=== PATIENT | female | born 1990 | race Caucasian/White ===

== ENCOUNTER 2016-12-13 11:14 | Emergency (ER) | payer OTHER ==
[~2016-12-13] VITALS: Ht 160 cm; Wt 95.0 kg
[~2016-12-13 11:14] MED LIST: ALBUTEROL SUL0.083 % IN; AMOXICILLIN/CL875 MG PO; AMOXICILLIN500 MG PO; BACTRIM DS1 TAB OR; BACTROBAN2 % EX; BENADRYL25 MG OR; CEPHALEXIN500 MG PO; CIPROFLOXACN500 MG PO; CLEOCIN150 MG PO; CLOBETASOL0.051 EX; CONCEPT OB PO; DENIES CURRENT MEDS; DOXYCYCL HYC100 MG PO; FLEXERIL OR; HYDROCORTISO2.51 EX; IBU-200200 MG OR; KEFLEX500 MG PO; LORTAB 10-325 M1 TAB PO; LORTAB 7.57.5 MG PO; MACRODANTIN100 MG PO; MEDDOSEPAK OR; MEDDOSEPAK PO; METRONIDAZOLE500 MG PO; MOTRIN800 MG PO; MOTRIN800 MG/TAB PO; NAPROSYN375 MG PO; NAPROSYN500 MG OR; NAPROSYN500 MG PO; NO; NO HOME MEDS; NORCO1 TA1 PO; ORTHO TRI-CY OR; PENICILLN VK500 MG PO; PHENERGAN12.5 MG/TA PO; PRE-NATAL PO; PROAIR HFA IN; PYRIDIUM200 MG PO; SPRINTEC 2828 DAY PO; STERAPRED DS10 MG PO; SYMBICORT 80-4.5MCG INH; TRAZODONE50 MG PO; TUBERSOL5 MG/0.1 M ID; TYLENOL500 MG PO; ULTRAM50 M1 PO; ULTRAM50 MG OR; ZITHROMAX250 MG PO; ZOFRAN ODT4 MG SL; ZOFRAN ODT8 MG SL; [UNRECOGNIZED DRUG - OTHER]
[2016-12-13 11:15] VITALS: BP 115/84
[2016-12-13] MEDS ORDERED: AMOX/K CLAV875 M1 PO (12:52)
[2016-12-13] MEDS ORDERED: ULTRAM50 M1 PO (12:52)
[2016-12-13] MEDS ORDERED: ZOFRAN ODT4 MG PO (12:52)
== END 2016-12-13 13:20 | disposition home or self-care (01) | DRG 603 ==
LOC: ED 11:14
DX: L03.116 Cellulitis of left lower limb (principal); M79.605 Pain in left leg; S70.312A Abrasion, left thigh, initial encounter; R22.42 Localized swelling, mass and lump, left lower limb; W19.XXXA Unspecified fall, initial encounter; Y92.009 Unspecified place in unspecified non-institutional (private) residence as the place of occurrence of the external cause

== ENCOUNTER 2016-12-27 10:17 | Emergency (ER) | payer OTHER ==
[~2016-12-27] VITALS: Ht 160 cm; Wt 95.5 kg
[~2016-12-27 10:17] MED LIST changes: +AMOX/K CLAV875 M1 PO; +ZOFRAN ODT4 MG PO
[2016-12-27 11:45] LABS: HEMATOCRIT 46.3 % (37.0-47.0); IMMATURE GRANULOCYTES 0.6 % (0.0-1.0); MEAN CELL VOLUME 88.5 fL CALC (80.0-100.0); MEAN CORPUSCULAR HGB 30.6 pG CALC (26.0-32.0); MEAN CORPUSCULAR HGB CONC 34.6 g/L CALC (32.0-36.0); NEUT# 11.76 thou/uL (2.00-7.15); RED BLOOD COUNT 5.23 mill/uL (4.20-5.60); RED CELL DISTRI WIDTH 12.1 % (11.5-15.5)
[2016-12-27 11:55] LABS: ALBUMIN 4.7 g/dL (3.2-5.0); ALKALINE PHOSPHATASE 85 u/l (38-126); ANION GAP 16 (6-22 (CALC)); BILIRUBIN, TOTAL 0.4 mg/dL (0.0-1.4); BUN 12 mg/dL (7-17); BUN/CREATININE RATIO 16 (12-20 (CALC)); CALCIUM 9.6 mg/dL (8.4-10.2); CARBON DIOXIDE 31 mmol/l (22-30); CHLORIDE 98 mmol/l (95-108); CREATININE 0.8 mg/dL (0.5-1.0); GFR > 60 ML/MIN (>=60 (CALC)); GFR FOR AFR.AMER. > 60 ML/MIN (>=60 (CALC)); GLUCOSE 96 mg/dL (65-105); POTASSIUM 3.2 mmol/l (3.5-5.1); SGOT/AST 23 u/l (14-36); SGPT/ALT 22 u/l (9-52); SODIUM 142 mmol/l (137-146); TOTAL PROTEIN 8.6 g/dL (6.3-8.2)
[2016-12-27 11:58] LABS: URINE BILIRUBIN - DIPSTICK NEGATIVE (NEGATIVE); URINE BLOOD DIPSTICK LARGE (NEGATIVE); URINE COLOR YELLOW; URINE GLUCOSE - DIPSTICK NEGATIVE (NEGATIVE); URINE KETONE NEGATIVE (NEGATIVE); URINE LEUK ESTERASE TRACE (NEGATIVE); URINE NITRITE - DIPSTICK NEGATIVE (Negative); URINE PROTEIN - DIPSTICK NEGATIVE (NEG-TRACE); URINE UROBILINOGEN - DIPSTICK 0.2 E.U./dL (0.2)
[2016-12-27 12:03] LABS: BARBITURATES NEGATIVE (NEGATIVE); COCAINE NEGATIVE (NEGATIVE); METHADONE NEGATIVE (NEGATIVE); OXCYCODONE NEGATIVE (NEGATIVE); TETRAHYDROCANNABIONOL NEGATIVE (NEGATIVE); TRICYLIC ANTIDEPRESSANTS NEGATIVE (NEGATIVE); URINE CLARITY HAZY; URINE EPITHELIAL CELLS FEW EPI/hpf (0-FEW); URINE RBC 25-50 RBC/hpf (0-5); URINE WBC 0-2 WBC/hpf (0-5)
[2016-12-27 12:07] LABS: MYOGLOBIN 23 ng/mL (0 - 62)
[2016-12-27] MEDS ORDERED: K-TAB20 MEQ PO (13:24)
[2016-12-27] MEDS ORDERED: ZOFRAN4 MG/TAB PO (13:24)
[2016-12-27 13:48] VITALS: BP 126/85
== END 2016-12-27 13:49 | disposition home or self-care (01) | DRG 312 ==
LOC: ED 10:17
PROVIDERS: Emergency Medicine
DX: R55 Syncope and collapse (principal); E87.6 Hypokalemia; R00.2 Palpitations

== ENCOUNTER 2017-02-02 08:34 | Emergency (ER) | payer OTHER ==
[~2017-02-02] VITALS: Ht 160 cm; Wt 99.6 kg
[~2017-02-02 08:34] MED LIST changes: +K-TAB20 MEQ PO; +ZOFRAN4 MG/TAB PO
[2017-02-02] MEDS ORDERED: KEFLEX500 MG PO (08:56)
[2017-02-02 09:00] VITALS: BP 126/87
== END 2017-02-02 09:00 | disposition home or self-care (01) | DRG 918 ==
LOC: ED 08:34
DX: T63.301A Toxic effect of unspecified spider venom, accidental (unintentional), initial encounter (principal); L53.0 Toxic erythema; F32.9 Major depressive disorder, single episode, unspecified; F41.9 Anxiety disorder, unspecified; J45.909 Unspecified asthma, uncomplicated

== ENCOUNTER 2017-02-25 21:28 | Emergency (ER) | payer OTHER ==
[~2017-02-25] VITALS: Ht 160 cm; Wt 95.2 kg
[2017-02-25 22:15] LABS: HEMATOCRIT 42.9 % (37.0-47.0); HEMOGLOBIN 15.2 g/dl (12.0-16.0); IMMATURE GRANULOCYTES 0.4 % (0.0-1.0); MEAN CELL VOLUME 89.2 fL CALC (80.0-100.0); MEAN CORPUSCULAR HGB 31.6 pG CALC (26.0-32.0); MEAN CORPUSCULAR HGB CONC 35.4 g/L CALC (32.0-36.0); NEUT# 3.61 thou/uL (2.00-7.15); RED BLOOD COUNT 4.81 mill/uL (4.20-5.60); RED CELL DISTRI WIDTH 12.4 % (11.5-15.5)
[2017-02-25 22:32] LABS: ALBUMIN 4.7 g/dL (3.2-5.0); ALKALINE PHOSPHATASE 82 u/l (38-126); AMYLASE 40 u/l (30-110); ANION GAP 18 (6-22 (CALC)); BILIRUBIN, TOTAL 0.4 mg/dL (0.0-1.4); BUN 9 mg/dL (7-17); BUN/CREATININE RATIO 15 (12-20 (CALC)); CALCIUM 9.3 mg/dL (8.4-10.2); CARBON DIOXIDE 22 mmol/l (22-30); CHLORIDE 105 mmol/l (95-108); CREATININE 0.6 mg/dL (0.5-1.0); GFR > 60 ML/MIN (>=60 (CALC)); GFR FOR AFR.AMER. > 60 ML/MIN (>=60 (CALC)); GLUCOSE 87 mg/dL (65-105); LIPASE 60 u/l (23-300); POTASSIUM 3.6 mmol/l (3.5-5.1); SGOT/AST 37 u/l (14-36); SGPT/ALT 37 u/l (9-52); SODIUM 141 mmol/l (137-146); TOTAL PROTEIN 7.8 g/dL (6.3-8.2)
[2017-02-25] MEDS ORDERED: ZOFRAN ODT4 MG PO (22:57)
[2017-02-25] MEDS ORDERED: LOMOTIL2.5 MG PO (22:57)
[2017-02-25 23:20] VITALS: BP 109/74
== END 2017-02-25 23:20 | disposition home or self-care (01) | DRG 392 ==
LOC: ED 21:28
PROVIDERS: Emergency Medicine
DX: K52.9 Noninfective gastroenteritis and colitis, unspecified (principal); F32.9 Major depressive disorder, single episode, unspecified; F41.9 Anxiety disorder, unspecified; J45.909 Unspecified asthma, uncomplicated; Z87.442 Personal history of urinary calculi; Z87.440 Personal history of urinary (tract) infections

== ENCOUNTER 2017-04-10 09:48 | Emergency (ER) | payer OTHER ==
[~2017-04-10] VITALS: Ht 160 cm; Wt 110.0 kg
[~2017-04-10 09:48] MED LIST changes: +LOMOTIL2.5 MG PO
[2017-04-10] MEDS ORDERED: YAZ1 TAB PO (10:05)
[2017-04-10 12:56] LABS: ANION GAP 13 (6-22 (CALC)); BUN 9 mg/dL (7-17); BUN/CREATININE RATIO 17 (12-20 (CALC)); CALCIUM 9.5 mg/dL (8.4-10.2); CARBON DIOXIDE 29 mmol/l (22-30); CHLORIDE 102 mmol/l (95-108); CREATININE 0.5 mg/dL (0.5-1.0); GFR > 60 ML/MIN (>=60 (CALC)); GFR FOR AFR.AMER. > 60 ML/MIN (>=60 (CALC)); GLUCOSE 87 mg/dL (65-105); POTASSIUM 3.7 mmol/l (3.5-5.1); SODIUM 140 mmol/l (137-146)
[2017-04-10] MEDS ORDERED: PERCOCET 5/325M1 TAB PO (15:13)
[2017-04-10 15:38] VITALS: BP 131/74
== END 2017-04-10 15:38 | disposition home or self-care (01) | DRG 552 ==
LOC: ED 09:48
PROVIDERS: Emergency Medicine
DX: S33.5XXA Sprain of ligaments of lumbar spine, initial encounter (principal); F32.9 Major depressive disorder, single episode, unspecified; S83.91XA Sprain of unspecified site of right knee, initial encounter; S73.111A Iliofemoral ligament sprain of right hip, initial encounter; F41.9 Anxiety disorder, unspecified; W17.89XA Other fall from one level to another, initial encounter; Y93.89 Activity, other specified; Y92.821 Forest as the place of occurrence of the external cause
CPT/HCPCS: Q9967

== ENCOUNTER 2017-07-02 14:24 | Emergency (ER) | payer OTHER ==
[~2017-07-02] VITALS: Ht 160 cm; Wt 95.0 kg
[~2017-07-02 14:24] MED LIST changes: +PERCOCET 5/325M1 TAB PO; +YAZ1 TAB PO
[2017-07-02 15:17] LABS: HEMATOCRIT 40.9 % (37.0-47.0); HEMOGLOBIN 14.2 g/dl (12.0-16.0); IMMATURE GRANULOCYTES 0.4 % (0.0-1.0); MEAN CELL VOLUME 91.1 fL CALC (80.0-100.0); MEAN CORPUSCULAR HGB 31.6 pG CALC (26.0-32.0); MEAN CORPUSCULAR HGB CONC 34.7 g/L CALC (32.0-36.0); NEUT# 7.51 thou/uL (2.00-7.15); RED BLOOD COUNT 4.49 mill/uL (4.20-5.60); URINE BILIRUBIN - DIPSTICK NEGATIVE (NEGATIVE); URINE BLOOD DIPSTICK NEGATIVE (NEGATIVE); URINE CLARITY CLEAR; URINE COLOR YELLOW; URINE GLUCOSE - DIPSTICK NEGATIVE (NEGATIVE); URINE KETONE NEGATIVE (NEGATIVE); URINE LEUK ESTERASE NEGATIVE (NEGATIVE); URINE NITRITE - DIPSTICK NEGATIVE (Negative); URINE PH 5.5 (4.5-8.0); URINE PROTEIN - DIPSTICK NEGATIVE (NEG-TRACE); URINE SPECIFIC GRAVITY <=1.005; URINE UROBILINOGEN - DIPSTICK 0.2 E.U./dL (0.2)
[2017-07-02 15:31] LABS: ALBUMIN 4.4 g/dL (3.2-5.0); ALKALINE PHOSPHATASE 80 u/l (38-126); ANION GAP 16 (6-22 (CALC)); BILIRUBIN, TOTAL 0.5 mg/dL (0.0-1.4); BUN 8 mg/dL (7-17); BUN/CREATININE RATIO 14 (12-20 (CALC)); CALCIUM 9.9 mg/dL (8.4-10.2); CARBON DIOXIDE 26 mmol/l (22-30); CHLORIDE 101 mmol/l (95-108); CREATININE 0.5 mg/dL (0.5-1.0); GFR > 60 ML/MIN (>=60 (CALC)); GFR FOR AFR.AMER. > 60 ML/MIN (>=60 (CALC)); GLUCOSE 79 mg/dL (65-105); LIPASE 96 u/l (23-300); POTASSIUM 3.8 mmol/l (3.5-5.1); SGOT/AST 17 u/l (14-36); SGPT/ALT 29 u/l (9-52); SODIUM 139 mmol/l (137-146); TOTAL PROTEIN 7.4 g/dL (6.3-8.2)
[2017-07-02 16:22] LABS: BETA-HCG, QUANT(RESULT NUMBER) 73131 mIU/mL
[2017-07-02] MEDS ORDERED: NORCO1 TA1 PO (17:06)
[2017-07-02] MEDS ORDERED: PHENERGAN IN25 MG/ML IJ (17:06)
[2017-07-02 17:23] VITALS: BP 117/69
== END 2017-07-02 17:42 | disposition home or self-care (01) | DRG 781 ==
LOC: ED 14:24
PROVIDERS: Family Medicine
DX: O26.891 Other specified pregnancy related conditions, first trimester (principal); M54.5 Low back pain; R10.32 Left lower quadrant pain; Z3A.08 8 weeks gestation of pregnancy; R10.12 Left upper quadrant pain

== ENCOUNTER 2017-08-19 16:19 | Emergency (ER) | payer OTHER ==
[~2017-08-19] VITALS: Ht 160 cm; Wt 94.8 kg
[~2017-08-19 16:19] MED LIST changes: +PHENERGAN IN25 MG/ML IJ
[2017-08-19 16:57] VITALS: BP 126/71
[2017-08-19] MEDS ORDERED: QVAR40 MCG/ACT IN (18:19)
[2017-08-19] MEDS ORDERED: PRE-NATAL PO (18:19)
== END 2017-08-19 17:28 | disposition left against medical advice (07) | DRG 951 ==
LOC: ED 16:19 → LWOBS 17:28
DX: Z91.19 Patient's noncompliance with other medical treatment and regimen (principal)

== ENCOUNTER 2018-03-24 20:12 | Emergency (ER) | payer OTHER ==
[~2018-03-24] VITALS: Ht 160 cm; Wt 98.8 kg
[~2018-03-24 20:12] MED LIST changes: +QVAR40 MCG/ACT IN
[2018-03-24 21:36] LABS: ALBUMIN 4.3 g/dL (3.2-5.0); ALKALINE PHOSPHATASE 110 u/l (38-126); AMYLASE 56 u/l (30-110); ANION GAP 15 (6-22 (CALC)); BILIRUBIN, TOTAL 0.4 mg/dL (0.0-1.4); BUN 8 mg/dL (7-17); BUN/CREATININE RATIO 15 (12-20 (CALC)); CARBON DIOXIDE 28 mmol/l (22-30); CHLORIDE 104 mmol/l (95-108); CREATININE 0.5 mg/dL (0.5-1.0); GFR > 60 ML/MIN (>=60 (CALC)); GFR FOR AFR.AMER. > 60 ML/MIN (>=60 (CALC)); LIPASE 117 u/l (23-300); POTASSIUM 4.2 mmol/l (3.5-5.1); SGPT/ALT 30 u/l (9-52); SODIUM 142 mmol/l (137-146); TOTAL PROTEIN 7.6 g/dL (6.3-8.2)
[2018-03-24 21:44] LABS: HEMATOCRIT 39.1 % (37.0-47.0); HEMOGLOBIN 12.6 g/dl (12.0-16.0); IMMATURE GRANULOCYTES 0.1 % (0.0-1.0); MEAN CELL VOLUME 86.3 fL CALC (80.0-100.0); MEAN CORPUSCULAR HGB 27.8 pG CALC (26.0-32.0); MEAN CORPUSCULAR HGB CONC 32.2 g/L CALC (32.0-36.0); NEUT# 5.91 thou/uL (2.00-7.15); RED BLOOD COUNT 4.53 mill/uL (4.20-5.60); RED CELL DISTRI WIDTH 15.5 % (11.5-15.5)
[2018-03-24 21:59] LABS: SGOT/AST 31 u/l (14-36)
[2018-03-24 22:28] LABS: URINE BILIRUBIN - DIPSTICK NEGATIVE (NEGATIVE); URINE BLOOD DIPSTICK NEGATIVE (NEGATIVE); URINE CLARITY SL CLOUDY; URINE COLOR YELLOW; URINE GLUCOSE - DIPSTICK NEGATIVE (NEGATIVE); URINE KETONE NEGATIVE (NEGATIVE); URINE LEUK ESTERASE NEGATIVE (NEGATIVE); URINE NITRITE - DIPSTICK NEGATIVE (Negative); URINE PH 6.5 (4.5-8.0); URINE PROTEIN - DIPSTICK NEGATIVE (NEG-TRACE); URINE UROBILINOGEN - DIPSTICK 0.2 E.U./dL (0.2)
[2018-03-24] MEDS ORDERED: PEPCID40 MG PO (23:13)
[2018-03-24 23:35] VITALS: BP 113/68
== END 2018-03-24 23:40 | disposition home or self-care (01) | DRG 392 ==
LOC: ED 20:12
PROVIDERS: Family Medicine
DX: K29.70 Gastritis, unspecified, without bleeding (principal); J45.909 Unspecified asthma, uncomplicated; R10.31 Right lower quadrant pain; R10.13 Epigastric pain

== ENCOUNTER 2018-05-06 09:44 | Emergency (ER) | payer OTHER ==
[~2018-05-06] VITALS: Ht 160 cm; Wt 100.0 kg
[~2018-05-06 09:44] MED LIST changes: +PEPCID40 MG PO
[2018-05-06] MEDS ORDERED: VOLTAREN1%GEL TOP (10:37)
[2018-05-06] MEDS ORDERED: MOTRIN400 MG PO (10:37)
[2018-05-06 11:24] VITALS: BP 132/82
== END 2018-05-06 11:32 | disposition home or self-care (01) ==
LOC: ED 09:44
DX: S66.912A Strain of unspecified muscle, fascia and tendon at wrist and hand level, left hand, initial encounter (principal); S46.812A Strain of other muscles, fascia and tendons at shoulder and upper arm level, left arm, initial encounter; J45.909 Unspecified asthma, uncomplicated; W17.89XA Other fall from one level to another, initial encounter; Y93.44 Activity, trampolining; Y92.009 Unspecified place in unspecified non-institutional (private) residence as the place of occurrence of the external cause

== ENCOUNTER → 2018-07-05 | Outpatient (REF) | payer OTHER ==
[~2018-07-05] MED LIST changes: +MOTRIN400 MG PO; +VOLTAREN1%GEL TOP
== END | disposition home or self-care (01) ==
LOC: MRI 06-25 09:30
PROVIDERS: ATTEND Physician Assistant Medical
DX: H47.099 Other disorders of optic nerve, not elsewhere classified, unspecified eye (principal); G43.719 Chronic migraine without aura, intractable, without status migrainosus
CPT/HCPCS: A9579

== ENCOUNTER 2018-09-07 10:15 | Emergency (ER) | payer OTHER ==
[~2018-09-07] VITALS: Ht 160 cm; Wt 109.1 kg
[2018-09-07] MEDS ORDERED: ADDERALL XR20 MG PO (11:32)
[2018-09-07] MEDS ORDERED: ARIPIPRAZOLE15 MG PO (11:32)
[2018-09-07] MEDS ORDERED: PROAIR HFA108 MCG/AC IN (11:33)
[2018-09-07] MEDS ORDERED: SYMBICORT1 AE1 IN (11:33)
[2018-09-07 11:35] VITALS: BP 130/84
== END 2018-09-07 11:35 | disposition home or self-care (01) ==
LOC: ED 10:15
DX: T23.651A Corrosion of second degree of right palm, initial encounter (principal); Y93.E5 Activity, floor mopping and cleaning; Y92.009 Unspecified place in unspecified non-institutional (private) residence as the place of occurrence of the external cause

== ENCOUNTER 2018-10-30 19:51 | Emergency (ER) | payer OTHER ==
[~2018-10-30] VITALS: Ht 160 cm; Wt 109.0 kg
[~2018-10-30 19:51] MED LIST changes: +ADDERALL XR20 MG PO; +ARIPIPRAZOLE15 MG PO; +PROAIR HFA108 MCG/AC IN; +SYMBICORT1 AE1 IN
[2018-10-30 20:10] VITALS: BP 120/73
[2018-10-30 20:27] LABS: HEMATOCRIT 41.4 % (37.0-47.0); HEMOGLOBIN 13.9 g/dl (12.0-16.0); IMMATURE GRANULOCYTES 0.4 % (0.0-5.0); MEAN CORPUSCULAR HGB 29.9 pG CALC (26.0-32.0); MEAN CORPUSCULAR HGB CONC 33.6 g/L CALC (32.0-36.0); NEUT# 10.49 thou/uL (2.00-7.15); RED BLOOD COUNT 4.65 mill/uL (4.20-5.60); RED CELL DISTRI WIDTH 13.2 % (11.5-15.5)
[2018-10-30 20:31] LABS: URINE BILIRUBIN - DIPSTICK NEGATIVE (NEGATIVE); URINE BLOOD DIPSTICK NEGATIVE (NEGATIVE); URINE COLOR YELLOW; URINE GLUCOSE - DIPSTICK NEGATIVE (NEGATIVE); URINE KETONE NEGATIVE (NEGATIVE); URINE NITRITE - DIPSTICK NEGATIVE (Negative); URINE PH 6.5 (4.5-8.0); URINE PROTEIN - DIPSTICK NEGATIVE (NEG-TRACE); URINE UROBILINOGEN - DIPSTICK 0.2 E.U./dL (0.2)
[2018-10-30 20:33] LABS: URINE LEUK ESTERASE SMALL (NEGATIVE)
[2018-10-30 20:49] LABS: ALBUMIN 4.9 g/dL (3.2-5.0); ALKALINE PHOSPHATASE 118 u/l (38-126); ANION GAP 15 (6-22 (CALC)); BILIRUBIN, TOTAL 0.6 mg/dL (0.0-1.4); BUN 8 mg/dL (7-17); BUN/CREATININE RATIO 13 (12-20 (CALC)); CARBON DIOXIDE 29 mmol/l (22-30); CHLORIDE 100 mmol/l (95-108); CREATININE 0.6 mg/dL (0.5-1.0); GFR > 60 ML/MIN (>=60 (CALC)); GFR FOR AFR.AMER. > 60 ML/MIN (>=60 (CALC)); POTASSIUM 3.7 mmol/l (3.5-5.1); SGOT/AST 31 u/l (14-36); SODIUM 140 mmol/l (137-146)
[2018-10-30 21:04] LABS: URINE RBC 0-2 RBC/hpf (0-5); URINE SQUAMOUS EPITHELIAL CELL FEW EPI/hpf (0-FEW)
[2018-10-30] MEDS ORDERED: CIPROFLOXACN500 MG PO (21:10)
[2018-10-30] MEDS ORDERED: FIORICET PO (21:10)
== END 2018-10-30 21:33 | disposition home or self-care (01) ==
LOC: ED 19:51
PROVIDERS: Emergency Medicine
DX: R51 Headache (principal); N39.0 Urinary tract infection, site not specified; R11.0 Nausea; H53.8 Other visual disturbances; H53.149 Visual discomfort, unspecified

== ENCOUNTER 2019-01-12 19:44 | Emergency (ER) | payer OTHER ==
[~2019-01-12] VITALS: Ht 160 cm; Wt 113.0 kg
[~2019-01-12 19:44] MED LIST changes: +FIORICET PO
[2019-01-12] MEDS ORDERED: MONTELUKAST SOD10 MG PO (20:38)
[2019-01-12] MEDS ORDERED: MOTRIN800 MG PO (21:37)
[2019-01-12 21:38] VITALS: BP 158/79
== END 2019-01-12 21:38 | disposition home or self-care (01) ==
LOC: ED 19:44
DX: S80.02XA Contusion of left knee, initial encounter (principal); W10.9XXA Fall (on) (from) unspecified stairs and steps, initial encounter; Y92.009 Unspecified place in unspecified non-institutional (private) residence as the place of occurrence of the external cause

== ENCOUNTER 2019-01-16 19:01 | Emergency (ER) | payer OTHER ==
[~2019-01-16] VITALS: Ht 160 cm; Wt 108.0 kg
[~2019-01-16 19:01] MED LIST changes: +MONTELUKAST SOD10 MG PO
[2019-01-16] MEDS ORDERED: ULTRAM50 M1 PO (20:28)
[2019-01-16] MEDS ORDERED: ZITHROMAX250 MG PO (20:28)
[2019-01-16 21:05] VITALS: BP 133/84
== END 2019-01-16 21:06 | disposition home or self-care (01) ==
LOC: ED 19:01
DX: S61.412A Laceration without foreign body of left hand, initial encounter (principal); W26.8XXA Contact with other sharp object(s), not elsewhere classified, initial encounter; Y93.89 Activity, other specified; Y92.009 Unspecified place in unspecified non-institutional (private) residence as the place of occurrence of the external cause

== ENCOUNTER 2019-01-20 17:25 | Emergency (ER) | payer OTHER ==
[~2019-01-20] VITALS: Ht 160 cm; Wt 109.0 kg
[2019-01-20 17:32] VITALS: BP 136/94
[2019-01-20] MEDS ORDERED: DOXYCYC MONO100 M2 PO (17:40)
== END 2019-01-20 17:49 | disposition home or self-care (01) ==
LOC: ED 17:25
DX: S61.412D Laceration without foreign body of left hand, subsequent encounter (principal)

== ENCOUNTER 2019-01-23 07:30 | Emergency (ER) | payer OTHER ==
[~2019-01-23] VITALS: Ht 160 cm; Wt 100.0 kg
[~2019-01-23 07:30] MED LIST changes: +DOXYCYC MONO100 M2 PO
[2019-01-23] MEDS ORDERED: DOXYCYC MONO100 M2 PO (07:55)
[2019-01-23] MEDS ORDERED: OMNI-PAC300 MG PO (07:55)
[2019-01-23 07:56] VITALS: BP 126/63
== END 2019-01-23 08:01 | disposition home or self-care (01) ==
LOC: ED 07:30
DX: S61.412D Laceration without foreign body of left hand, subsequent encounter (principal); T81.41XA Infection following a procedure, superficial incisional surgical site, initial encounter

== ENCOUNTER 2019-03-24 10:51 | Emergency (ER) | payer OTHER ==
[~2019-03-24] VITALS: Ht 160 cm; Wt 109.1 kg
[~2019-03-24 10:51] MED LIST changes: +OMNI-PAC300 MG PO
[2019-03-24] MEDS ORDERED: GABAPENTIN600 MG PO (11:00)
[2019-03-24 11:28] LABS: HEMATOCRIT 40.4 % (37.0-47.0); HEMOGLOBIN 13.5 g/dl (12.0-16.0); IMMATURE GRANULOCYTES 0.3 % (0.0-5.0); MEAN CELL VOLUME 89.4 fL CALC (80.0-100.0); MEAN CORPUSCULAR HGB 29.9 pG CALC (26.0-32.0); MEAN CORPUSCULAR HGB CONC 33.4 g/L CALC (32.0-36.0); NEUT# 4.23 thou/uL (2.00-7.15); RED BLOOD COUNT 4.52 mill/uL (4.20-5.60); RED CELL DISTRI WIDTH 13.2 % (11.5-15.5)
[2019-03-24 11:38] LABS: ALBUMIN 4.1 g/dL (3.2-5.0); ALKALINE PHOSPHATASE 108 u/l (38-126); ANION GAP 10 (6-22 (CALC)); BILIRUBIN, TOTAL 0.5 mg/dL (0.0-1.4); BUN 6 mg/dL (7-17); BUN/CREATININE RATIO 13 (12-20 (CALC)); CARBON DIOXIDE 28 mmol/l (22-30); CHLORIDE 105 mmol/l (95-108); CREATININE 0.5 mg/dL (0.5-1.0); GFR > 60 ML/MIN (>=60 (CALC)); GFR FOR AFR.AMER. > 60 ML/MIN (>=60 (CALC)); LIPASE 75 u/l (23-300); POTASSIUM 3.9 mmol/l (3.5-5.1); SGOT/AST 27 u/l (14-36); SODIUM 138 mmol/l (137-146); TOTAL PROTEIN 6.9 g/dL (6.3-8.2)
[2019-03-24 12:16] LABS: URINE BILIRUBIN - DIPSTICK NEGATIVE (NEGATIVE); URINE BLOOD DIPSTICK NEGATIVE (NEGATIVE); URINE COLOR YELLOW; URINE GLUCOSE - DIPSTICK NEGATIVE (NEGATIVE); URINE KETONE NEGATIVE (NEGATIVE); URINE LEUK ESTERASE NEGATIVE (NEGATIVE); URINE NITRITE - DIPSTICK NEGATIVE (Negative); URINE PH 7.5 (4.5-8.0); URINE PROTEIN - DIPSTICK NEGATIVE (NEG-TRACE); URINE UROBILINOGEN - DIPSTICK 0.2 E.U./dL (0.2)
[2019-03-24 13:03] VITALS: BP 115/56
== END 2019-03-24 13:03 | disposition home or self-care (01) ==
LOC: ED 10:51
PROVIDERS: Family Medicine
DX: R10.84 Generalized abdominal pain (principal); R55 Syncope and collapse; R11.0 Nausea

== ENCOUNTER 2019-04-27 20:55 | Emergency (ER) | payer OTHER ==
[~2019-04-27] VITALS: Ht 160 cm; Wt 109.0 kg
[~2019-04-27 20:55] MED LIST changes: +GABAPENTIN600 MG PO
[2019-04-27] MEDS ORDERED: ADDERALL20 MG PO (21:10)
[2019-04-27] MEDS ORDERED: IBUPROFEN600 MG PO (22:25)
[2019-04-27 22:50] VITALS: BP 127/58
== END 2019-04-27 22:50 | disposition home or self-care (01) ==
LOC: ED 20:55
DX: M79.671 Pain in right foot (principal)

== ENCOUNTER 2019-11-29 | Emergency (ER) | payer MEDICAID ==
[~2019-11-29] MED LIST changes: +ADDERALL20 MG PO; +IBUPROFEN600 MG PO
[2019-11-29 13:48] LABS: HEMATOCRIT 42.4 % (37.0-47.0); HEMOGLOBIN 14.1 g/dl (12.0-16.0); IMMATURE GRANULOCYTES 0.1 % (0.0-5.0); MEAN CELL VOLUME 91.6 fL CALC (80.0-100.0); MEAN CORPUSCULAR HGB 30.5 pG CALC (26.0-32.0); MEAN CORPUSCULAR HGB CONC 33.3 g/L CALC (32.0-36.0); NEUT# 6.32 thou/uL (2.00-7.15); RED BLOOD COUNT 4.63 mill/uL (4.20-5.60)
[2019-11-29 14:01] LABS: ANION GAP 12 (6-22 (CALC)); BUN 10 mg/dL (7-17); BUN/CREATININE RATIO 22 (12-20 (CALC)); CARBON DIOXIDE 30 mmol/l (22-30); CHLORIDE 100 mmol/l (95-108); CREATININE 0.5 mg/dL (0.5-1.0); GFR > 60 ML/MIN (>=60 (CALC)); GFR FOR AFR.AMER. > 60 ML/MIN (>=60 (CALC)); POTASSIUM 3.9 mmol/l (3.5-5.1); SODIUM 139 mmol/l (137-146)
[2019-11-29] MEDS ORDERED: ONDANSETRON4 MG PO (16:06)
== END 2019-11-29 16:01 | disposition home or self-care (01) | DRG 313 ==
PROVIDERS: Family Medicine
DX: R07.9 Chest pain, unspecified (principal)

== ENCOUNTER 2021-02-23 13:53 | Observation (INO) | payer OTHER ==
[~2021-02-23] VITALS: Ht 160 cm; Wt 126.0 kg
[~2021-02-23 13:53] MED LIST changes: +ONDANSETRON4 MG PO
--- NOTE | 2021-02-23 14:00 | NUR ---
PT AMBULATED WITH LIMP TO ER ROOM 6 FOR BEDSIDE TRIAGE; DECLINED OFFER FOR WHEELCHAIR.
--- NOTE | 2021-02-23 15:00 | NUR ---
PT AOX3 WITH SLIGHT PAIN, AWAITING RESULTS TO RECIEVE PAIN MEDS
[2021-02-23 15:04] LABS: HEMATOCRIT 43.1 % (37.0-47.0); HEMOGLOBIN 14.4 g/dl (12.0-16.0); IMMATURE GRANULOCYTES 0.4 % (0.0-5.0); MEAN CELL VOLUME 92.1 fL CALC (80.0-100.0); MEAN CORPUSCULAR HGB 30.8 pG CALC (26.0-32.0); MEAN CORPUSCULAR HGB CONC 33.4 g/dL CAL (32.0-36.0); NEUT# 5.52 thou/uL (2.00-7.15); RED BLOOD COUNT 4.68 mill/uL (4.20-5.60); RED CELL DISTRI WIDTH 12.9 % (11.5-15.5)
[2021-02-23 15:35] LABS: ALBUMIN 4.3 g/dL (3.2-5.0); ALKALINE PHOSPHATASE 89 u/l (38-126); ANION GAP 12 (6-22 (CALC)); BILIRUBIN, TOTAL 0.5 mg/dL (0.0-1.4); BUN 6 mg/dL (7-17); BUN/CREATININE RATIO 12 (12-20 (CALC)); CARBON DIOXIDE 28 mmol/l (22-30); CHLORIDE 100 mmol/l (95-108); CREATININE 0.5 mg/dL (0.5-1.0); GFR > 60 ML/MIN (>=60 (CALC)); GFR FOR AFR.AMER. > 60 ML/MIN (>=60 (CALC)); POTASSIUM 3.8 mmol/l (3.5-5.1); SODIUM 136 mmol/l (137-146); TOTAL PROTEIN 7.5 g/dL (6.3-8.2)
[2021-02-23 15:36] LABS: SGOT/AST 143 u/l (14-36)
--- NOTE | 2021-02-23 16:00 | NUR ---
PT COMPLAINING OF UNRELIEVED PAIN, MADE AWARE
--- NOTE | 2021-02-23 17:00 | NUR ---
PT RESTING, CALL LIGHT IN REACH
--- NOTE | 2021-02-23 19:30 | NUR ---
GAVE REPORT TO JABARI RN, PT AOX3, 02/08 PAIN, EDUCATED ON ADMISSION AND PLAN OF CARE, PT WHEELED TO MS
[2021-02-23 19:35] VITALS: BP 150/95
--- NOTE | 2021-02-23 19:35 | NUR ---
PT RECEIVED FROM ED TO ROOM 272. ARRIVES VIA W/C ACCOMPANIED BY JARAD PARK. PT AMBULATORY TO BED. GAIT STEADY. PT C/O PAIN AT THIS TIME. ORIENTED TO UNIT, ROOM, CALL HYLTON, LIGHTS, TV. ICE WATER PROVIDED. CALL HYLTON WITHIN REACH. AGREES TO CALL PRN.
--- NOTE | 2021-02-23 20:00 | NUR ---
PHYSICAL ASSESMENT COMPLETE. HEART AND LUNG SOUNDS NORMAL. PICTURE TAKEN OF WOUND ON LEFT LOWER LEG. PT DENIES ANY NEEDS AT THIS TIME. PLAN OF CARE REVIEWED, PT DENIES QUESTIONS, VERBALIZES UNDERSTANDING. ITEMS WITHIN REACH, BED LOCKED IN LOW POSITION W/ BEDRAILS UP X2. CALL HYLTON WITHIN REACH, AGREES TO CALL PRN.
--- NOTE | 2021-02-24 | NUR ---
PT LAYING IN BED WITH EYES CLOSED, APPEARS TO BE SLEEPING, APPEARS COMFORTABLE AND IN NO DISTRESS. RESPIRATIONS REGULAR AND UNLABORED. ITEMS REMAIN WITHIN REACH, CALL HYLTON REMAINS WITHIN REACH. BED REMAINS LOCKED AND IN LOW POSITION WITH BEDRAILS UP X2. WILL CONTINUE TO MONITOR.
[2021-02-24 00:19] VITALS: BP 87/55
--- NOTE | 2021-02-24 00:19 | NUR ---
LAB REPORT CRITICAL LAB OF LACTIC ACID 3.0. DR MOHAN MADE AWARE. NEW ORDERS PER DR MOHAN TO BOLUS 1 LITER OF NORMAL SALINE. MONITOR PERIPHERAL PULSES, BP AND HR. WILL CONTINUE TO MONITOR CLOSELY.
[2021-02-24 04:00] VITALS: BP 126/84
--- NOTE | 2021-02-24 04:33 | NUR ---
PT RESTING IN BED, NO SIGNS OF DISTRESS NOTED, RESP EVEN AND UNLABORED. PT BP 126/84. PT REPORTS A HEADACHE BUT DOES NOT WANT MEDICATION. CALL LIGHT IN REACH, CONTINUE TO MONITOR.
[2021-02-24 07:45] VITALS: BP 143/88
--- NOTE | 2021-02-24 07:45 | NUR ---
ASSESSMENT IS COMPLETED: IV SITE IS FREE FROM REDNESS OR EDEMA. HR IS REG,PULSES ARE STRONG X4, ABD IS SOFT WITH ACTIVE BS. BREATH SOUNDS ARE CLEAR,BILATERALLY. TRACE EDEMA NOTED ON LEFT FOOT. C/O SOME TIGHTNESS ON UPPER THIGH. CONTINUE TO OSBERVE AND MONITOR. DR JEFFERSON CAME AND SAW THE PT THIS AM.
--- NOTE | 2021-02-24 08:40 | NUR ---
S: DAVID APPIAH is a 30 F who presents with foot pain, cellulits. She has a history of asthma tachycardia. All medications in patient's chart were reviewed. O: VS: BP 143/88 mmHg, P 93 bmp, RR 18 bpm, T 96.9 F W 126 kg, HT 160 cm, Scr= 0.5, CrCl > 90 ml/min A: Blood culture is pending. P: Patient is on ceftriaxone 2 g IV Q24H Vancomycin ordered for pharmacy to dose. Start Vancomycin 1500 mg IV Q8H. Vancomycin trough is drawn before the 4th dose on 02/25/21 at 0730 Vancomycin goal trough is between 10-15 mcg/ml . Pharmacy will follow and or advise on antibiotics use as needed.
[2021-02-24] MEDS ORDERED: GABAPENTIN600 MG PO (10:23)
[2021-02-24] MEDS ORDERED: MIRTAZAPINE30 M2 PO (10:23)
[2021-02-24] MEDS ORDERED: QUETIAPINE FUMA50 MG PO (10:26)
[2021-02-24] MEDS ORDERED: XANAX0.5 MG PO (11:30)
--- NOTE | 2021-02-24 13:15 | NUR ---
PT TRANSPORTED TO HAVE US AND CT SCAN COMPLETED: RETURNED AT 1350 VIA WC WITH STAFF.
[2021-02-24 15:07] VITALS: BP 126/78
[2021-02-24] MEDS ORDERED: FAMOTIDINE40 M1 PO (15:07)
--- NOTE | 2021-02-24 16:00 | NUR ---
PT IS RELAXING IN BED WITH NO DISTRESS NOTED. IV SITE IS FREE FROM REDNESS OR EDEA.
--- NOTE | 2021-02-24 17:38 | NUR ---
PT IS RECIEVING AUTUMN ALVARADO AND PT WILL WAIT UNTIL FINISHED BEFORE TAKING A SHOWER.
--- NOTE | 2021-02-24 18:50 | NUR ---
REPORT FROM MARCIA GASPAR. ASSUMED PT CARE.
[2021-02-24 19:06] VITALS: BP 146/86
--- NOTE | 2021-02-24 19:44 | NUR ---
PT UNHOOKED FROM IV FLUIDS AT THIS TIME, IV SITE SECURED. PT SET UP FOR SHOWER.
--- NOTE | 2021-02-24 20:21 | NUR ---
PT NOTED SITTING UP IN BED WATCHING TV. NO APPARENT DISTRESS NOTED. TRACE EDEMA NOTED TO LLE. PILLOWS PROVIDED TO ELEVATE. SODA PROVIDED UPON REQUEST. PT STATES SHE WOULD LIKE A PAIN PILL WITH EVENING MEDICATION, UPON DISCUSSION PT HOME MEDICATIONS NOT ORDERED AT THIS TIME. WILL NOTIFY GRADUATE STUDENT INSTRUCTOR PHYSICIAN TO OBTAIN ORDERS OF HOME MEDS. NO OTHER CURRENT WANTS OR NEEDS. IVF INFUSING RESTARTED, IV SITE CDI AND FLUSHED WELL. CALL LIGHT WITHIN REACH. WILL CONTINUE TO MONITOR.
--- NOTE | 2021-02-24 20:32 | NUR ---
PLANT HR MANAGER PHYSICIAN NOTIFIED OF PT REQUESTING HOME MEDICATION. ORDERS RECEIVED TO RESTART HOME MEDICATIONS ORDERED.
--- NOTE | 2021-02-25 00:50 | NUR ---
PT RESTING IN BED WITH EYES CLOSED. NO APPARENT DISTRESS NOTED. RESPIRATIONS EVEN AND UNLABORED. IVF INFUSING WITHOUT DIFFICULTY. CALL LIGHT WITHIN REACH. WILL CONTINUE TO MONITOR.
[2021-02-25 04:00] VITALS: BP 118/75
--- NOTE | 2021-02-25 04:55 | NUR ---
PT RESTING IN BED. NO APPARENT DISTRESS NOTED. RESPIRATIONS EVEN AND UNLABORED. PT DENIES ANY PAIN OR DISCOMFORT. LLE ELEVATED ON PILLOWS. CALL LIGHT WITHIN REACH. WILL CONTINUE TO MONITOR.
[2021-02-25 08:10] VITALS: BP 149/81
--- NOTE | 2021-02-25 08:10 | NUR ---
ASSESSMENT IS COMPLETED: IV SITE IS FREE FROM REDNESS OR EDEMA.HR IS REG,PULSES ARE STRONG X4, ABD IS SOFT WITH ACTIVE BS. LEFT FOOT HAS SOME EDEMA NOTED. BREATH SOUNDS ARE CLEAR,BILATERALLY. CONTINUE TO OSBERVE AND MONITOR.
[2021-02-25 08:21] LABS: HEMOGLOBIN 13.8 g/dl (12.0-16.0); IMMATURE GRANULOCYTES 0.2 % (0.0-5.0); MEAN CELL VOLUME 96.4 fL CALC (80.0-100.0); MEAN CORPUSCULAR HGB 30.9 pG CALC (26.0-32.0); MEAN CORPUSCULAR HGB CONC 32.1 g/dL CAL (32.0-36.0); NEUT# 2.87 thou/uL (2.00-7.15); RED BLOOD COUNT 4.46 mill/uL (4.20-5.60); RED CELL DISTRI WIDTH 13.1 % (11.5-15.5)
--- NOTE | 2021-02-25 08:58 | NUR ---
S: DAVID APPIAH is a 30 F who presents with foot injury/pain due to cellulitis. She has a history of asthma, tachycardia . All medications in patient's chart were reviewed. O: VS: BP 118/75 mmHg, P 95 bpm, RR 19 bpm, T 96.8 F W 126 kg, HT 63 in, Scr= 0.4, CrCl= >200 ml/min Vancomycin trough 02/25@0730 = 17 A: Blood culture preliminary show no growth. Vancomycin trough level is supratherapeutic. Decrease in dose warranted. P: Patient is on ceftriaxone 2 G IV Q24H and vancomycin 1500 mg IV q8h. Vancomycin ordered for pharmacy to dose. Decrease Vancomycin to 1000 MG IV Q8H. Vancomycin trough is drawn before the 4th dose on 02/26/21. Vancomycin goal trough is between 10-15 mcg/ml. Pharmacy will follow and or advise on antibiotics use as needed.
[2021-02-25 09:21] LABS: ANION GAP 12 (6-22 (CALC)); BUN 6 mg/dL (7-17); BUN/CREATININE RATIO 13 (12-20 (CALC)); CARBON DIOXIDE 24 mmol/l (22-30); CHLORIDE 105 mmol/l (95-108); CREATININE 0.4 mg/dL (0.5-1.0); GFR > 60 ML/MIN (>=60 (CALC)); GFR FOR AFR.AMER. > 60 ML/MIN (>=60 (CALC)); POTASSIUM 4.2 mmol/l (3.5-5.1); SODIUM 137 mmol/l (137-146)
--- NOTE | 2021-02-25 10:44 | NUR ---
DR WALTON IS RECOMMENDING. THAT PT CAN STAY 1 MORE DAY FOR IV ABT AND THEN BE ON ORAL ABT . TO KEEP FOOT ELEVATED.
--- NOTE | 2021-02-25 12:15 | NUR ---
PT HAD BEEN IN THE CHAIR, AND WENT BACK TO BED, TO ELEVATE HER LEGS. PER PHYSICIAN. IV SITE IS FREE FROM REDNESS OR EDEMA. HER R WRIST HAS A SMALL RED RAISED AREA( WHERE HER WATCH WAS) PLACED AN ICE PACK. NO DISTRESS NTOED.
[2021-02-25 14:45] VITALS: BP 135/80
--- NOTE | 2021-02-25 18:06 | NUR ---
PT GOT UP FROM THE CHAIR AND BECAME A LITTLE DIZZY,ASSISTED TO THE BATHROOM WITH THERAPEUTIC DIETITIAN. ALSO C/O LEG THROBBING , GAVE PAIN MEDICATION
--- NOTE | 2021-02-25 18:13 | NUR ---
PT C/O DIZZINESS AND HAS A SMALL STITCH LEFT IN HER INCISION ON THE LEFT FOOT. INQUIRED IF WE CAN TAKE IT OUT.
[2021-02-25 19:00] VITALS: BP 144/96
--- NOTE | 2021-02-25 20:09 | NUR ---
PT MEDICATED ORDERS PROVIDE. PT HAS LEFT FOOT ELEVATED, MILD REDNESS TO L.FOOT NEART OLD INCISION. 1+EDEMA TO L.FOOT/ANKLE ALSO, FOOT IS COOL TO TOUCH WITH STRONG PULSE PALPATED. PT REPORTS THAT THE PAIN MEDICATION THEY GAVE HER TWO HOURS AGO IS NOT HELPING AND ASKED FOR SOMETHING STRONGER. NEURONTIN PROVIDED AT THIS TIME. I INFORMED HER THAT I WILL NOTIFY PHYSICIAN DENTAL LABORATORY TECHNICIAN FOR ADDITIONAL PAIN MEDICATION ORDERS. VERBALIZED UNDERSTANDING. DENIES ANY OTHER NEEDS. ASSESSMENT COMPLETED AND ANTIBIOTIC THERAPY ADMINISTERED AT THIS TIME.
--- NOTE | 2021-02-25 21:45 | NUR ---
PT MEDICATED FOR PAIN AND ICE-PACKS PLACED ON L.FOOT, IT IS ALSO ELEVATED ON PILLOWS. PT REPORTS THE ICE PACK SEEMS TO HELP. MEDICATIONS DISCUSSED WITH PT, SHE IS CONCERNED ABOUT GOING HOME ON PO ABX.
--- NOTE | 2021-02-26 03:20 | NUR ---
PT MEDICATED W/IV ANTIBIOTIC THERAPY AND TYLENOL FOR PAIN 4/10 ON PAIN SCALE. V/S ASSESSED AT THIS TIME ALSO. LEFT FOOT IS ELEVATED. PT DENIES ANY OTHER NEEDS.
[2021-02-26 03:22] VITALS: BP 118/73
[2021-02-26 06:17] LABS: HEMATOCRIT 45.2 % (37.0-47.0); HEMOGLOBIN 14.7 g/dl (12.0-16.0); MEAN CELL VOLUME 95.2 fL CALC (80.0-100.0); MEAN CORPUSCULAR HGB 30.9 pG CALC (26.0-32.0); MEAN CORPUSCULAR HGB CONC 32.5 g/dL CAL (32.0-36.0); RED BLOOD COUNT 4.75 mill/uL (4.20-5.60); RED CELL DISTRI WIDTH 13.1 % (11.5-15.5)
[2021-02-26 06:26] LABS: ANION GAP 15 (6-22 (CALC)); BUN 7 mg/dL (7-17); BUN/CREATININE RATIO 16 (12-20 (CALC)); CARBON DIOXIDE 24 mmol/l (22-30); CHLORIDE 102 mmol/l (95-108); CREATININE 0.4 mg/dL (0.5-1.0); GFR > 60 ML/MIN (>=60 (CALC)); GFR FOR AFR.AMER. > 60 ML/MIN (>=60 (CALC)); POTASSIUM 4.1 mmol/l (3.5-5.1); SODIUM 137 mmol/l (137-146)
[2021-02-26 07:45] VITALS: BP 128/80
--- NOTE | 2021-02-26 07:45 | NUR ---
ASSESSMENT IS COMPLETED: IV SITE IS FREE FROM REDNESS OR EDEMA. HR IS REG,PULSES ARE STRONG X4, ABD IS SOFT WITH ACTIVE BS. BREATH SOUNDS ARE CLEAR BILATERALLY. NO C/O SOB. HAS TRACE EDEMA NOTED ON LEFT FOOT. CONTINUE TO OBSERVE AND MONITOR.
[2021-02-26] MEDS ORDERED: LORTAB 5/3255 MG PO (07:46)
[2021-02-26] MEDS ORDERED: KEFLEX500 MG PO (07:46)
[2021-02-26] MEDS ORDERED: DOXYCYCL HYC100 MG PO (07:46)
--- NOTE | 2021-02-26 12:10 | NUR ---
PT IS RELAXING IN BED WAITING FOR ABT TO COMPLETED FOR DISCHARGE. ALL INSTRUCTIONS READY FOR HER. AND ALEX RN WILL GIVE HER THE INFORMATION .
--- NOTE | 2021-02-26 14:24 | NUR ---
PT HAS BEEN DISCHARGED TO HOME. PT VERBALIZED UNDERSTANDING OF DC INSTRUCTIONS, LEAVES DM IN STABLE CONDITION.
== END 2021-02-26 14:25 | disposition home or self-care (01) ==
LOC: ED 13:53 → ED-I 16:25 → ED 16:47 → MS2 16:48
PROVIDERS: Nurse Practitioner; ADMIT Internal Medicine; ATTEND Internal Medicine
DX: L03.116 Cellulitis of left lower limb (principal); E87.2 Acidosis; J45.909 Unspecified asthma, uncomplicated; E66.01 Morbid (severe) obesity due to excess calories; Z68.42 Body mass index [BMI] 45.0-49.9, adult; Z88.1 Allergy status to other antibiotic agents; Z88.0 Allergy status to penicillin; Z91.19 Patient's noncompliance with other medical treatment and regimen; Z20.822 Contact with and (suspected) exposure to COVID-19; Z98.890 Other specified postprocedural states
CPT/HCPCS: G0378; J1650; J3370; Q3014

== ENCOUNTER 2021-12-22 14:49 | Emergency (ER) | payer OTHER ==
[~2021-12-22] VITALS: Ht 160 cm; Wt 131.8 kg
[~2021-12-22 14:49] MED LIST changes: +FAMOTIDINE40 M1 PO; +LORTAB 5/3255 MG PO; +MIRTAZAPINE30 M2 PO; +QUETIAPINE FUMA50 MG PO; +XANAX0.5 MG PO
[2021-12-22 15:34] VITALS: BP 143/87
[2021-12-22 17:31] VITALS: BP 140/82
[2021-12-22] MEDS ORDERED: LORTAB 7.57.5 MG PO (17:49)
[2021-12-22 18:16] VITALS: BP 140/82
== END 2021-12-22 18:16 | disposition home or self-care (01) ==
LOC: ED 14:49
DX: S63.502A Unspecified sprain of left wrist, initial encounter (principal); S60.222A Contusion of left hand, initial encounter; K21.9 Gastro-esophageal reflux disease without esophagitis; F41.9 Anxiety disorder, unspecified; J45.909 Unspecified asthma, uncomplicated; W01.0XXA Fall on same level from slipping, tripping and stumbling without subsequent striking against object, initial encounter; Y92.009 Unspecified place in unspecified non-institutional (private) residence as the place of occurrence of the external cause

== ENCOUNTER 2022-03-03 11:24 | Emergency (ER) | payer OTHER ==
[~2022-03-03] VITALS: Ht 160 cm; Wt 127.0 kg
[2022-03-03 11:49] VITALS: BP 140/81
[2022-03-03 12:00] VITALS: BP 134/87
[2022-03-03 12:15] VITALS: BP 133/83
[2022-03-03 12:30] VITALS: BP 123/104
[2022-03-03 13:15] LABS: URINE BILIRUBIN - DIPSTICK NEGATIVE (NEGATIVE); URINE BLOOD DIPSTICK NEGATIVE (NEGATIVE); URINE COLOR YELLOW; URINE GLUCOSE - DIPSTICK NEGATIVE (NEGATIVE); URINE KETONE NEGATIVE (NEGATIVE); URINE LEUK ESTERASE NEGATIVE (NEGATIVE); URINE PROTEIN - DIPSTICK NEGATIVE (NEG-TRACE); URINE UROBILINOGEN - DIPSTICK 0.2 E.U./dL (0.2)
[2022-03-03 13:18] LABS: URINE NITRITE - DIPSTICK NEGATIVE (Negative)
[2022-03-03] MEDS ORDERED: CYCLOBENZAPRINE10 MG PO (15:19)
[2022-03-03] MEDS ORDERED: NAPROXEN500 MG PO (15:19)
[2022-03-03] MEDS ORDERED: LORTAB5 PO (15:19)
== END 2022-03-03 16:00 | disposition home or self-care (01) ==
LOC: ED 11:24
PROVIDERS: Nurse Practitioner
DX: S70.12XA Contusion of left thigh, initial encounter (principal); S80.12XA Contusion of left lower leg, initial encounter; S39.012A Strain of muscle, fascia and tendon of lower back, initial encounter; J45.909 Unspecified asthma, uncomplicated; W10.9XXA Fall (on) (from) unspecified stairs and steps, initial encounter; Y93.89 Activity, other specified; Y92.009 Unspecified place in unspecified non-institutional (private) residence as the place of occurrence of the external cause
CPT/HCPCS: L1830

== ENCOUNTER 2022-10-24 13:08 | Emergency (ER) | payer OTHER ==
[~2022-10-24] VITALS: Ht 160 cm; Wt 120.0 kg
[~2022-10-24 13:08] MED LIST changes: +CYCLOBENZAPRINE10 MG PO; +LORTAB5 PO; +NAPROXEN500 MG PO
[2022-10-24 14:15] LABS: BASO% 0.4 % (0-3); EOS% 1.9 % (0-8); HEMATOCRIT 40.3 % (37.0-47.0); HEMOGLOBIN 13.6 g/dl (12.0-16.0); IMMATURE GRANULOCYTES 0.2 % (0.0-5.0); MEAN CELL VOLUME 93.7 fL CALC (80.0-100.0); MEAN CORPUSCULAR HGB 31.6 pG CALC (26.0-32.0); MEAN CORPUSCULAR HGB CONC 33.7 g/dL CAL (32.0-36.0); MONO% 4.7 % (2-13); NEUT# 7.62 thou/uL (2.00-7.15); NEUT% 72.8 % (42-76); RED BLOOD COUNT 4.3 mill/uL (4.20-5.60); RED CELL DISTRI WIDTH 12.2 % (11.5-15.5)
[2022-10-24 14:30] LABS: ALBUMIN 4.5 g/dL (3.2-5.0); ALKALINE PHOSPHATASE 102 u/l (38-126); ANION GAP 10 (6-22 (CALC)); BILIRUBIN, TOTAL 0.4 mg/dL (0.0-1.4); BUN 9 mg/dL (7-17); BUN/CREATININE RATIO 14 (12-20 (CALC)); CARBON DIOXIDE 27 mmol/l (22-30); CHLORIDE 102 mmol/l (95-108); CREATININE 0.7 mg/dL (0.5-1.0); GFR FOR AFR.AMER. > 60 ML/MIN (>=60 (CALC)); GFR OTHER RACES > 60 ML/MIN (>=60 (CALC)); POTASSIUM 3.8 mmol/l (3.5-5.1); SGOT/AST 61 u/l (14-36); SODIUM 135 mmol/l (137-146); TOTAL PROTEIN 7.7 g/dL (6.3-8.2)
[2022-10-24 15:00] VITALS: BP 142/85
[2022-10-24 17:11] VITALS: BP 120/68
[2022-10-24 17:20] VITALS: BP 120/68
== END 2022-10-24 17:34 | disposition home or self-care (01) ==
LOC: ED 13:08
PROVIDERS: Family Medicine
DX: R07.9 Chest pain, unspecified (principal); M79.661 Pain in right lower leg; I11.0 Hypertensive heart disease with heart failure; I50.22 Chronic systolic (congestive) heart failure; E11.9 Type 2 diabetes mellitus without complications; J45.909 Unspecified asthma, uncomplicated; Z20.822 Contact with and (suspected) exposure to COVID-19

== ENCOUNTER 2022-11-08 11:19 | Emergency (ER) | payer OTHER ==
[~2022-11-08] VITALS: Ht 160 cm; Wt 127.0 kg
[2022-11-08 11:32] VITALS: BP 136/70
[2022-11-08 12:15] VITALS: BP 121/77
[2022-11-08 12:31] VITALS: BP 113/71
[2022-11-08 12:46] VITALS: BP 119/65
[2022-11-08 13:01] VITALS: BP 124/68
[2022-11-08] MEDS ORDERED: LORTAB 7.57.5 MG PO (13:10)
[2022-11-08] MEDS ORDERED: NAPROXEN500 MG PO (13:10)
[2022-11-08] MEDS ORDERED: METHOCARBAMOL500 MG PO (13:10)
[2022-11-08 13:32] VITALS: BP 124/68
== END 2022-11-08 13:42 | disposition home or self-care (01) ==
LOC: ED 11:19
DX: S83.91XA Sprain of unspecified site of right knee, initial encounter (principal); S73.101A Unspecified sprain of right hip, initial encounter; S86.892A Other injury of other muscle(s) and tendon(s) at lower leg level, left leg, initial encounter; S86.891A Other injury of other muscle(s) and tendon(s) at lower leg level, right leg, initial encounter; E11.9 Type 2 diabetes mellitus without complications; I50.9 Heart failure, unspecified; J45.909 Unspecified asthma, uncomplicated; W01.0XXA Fall on same level from slipping, tripping and stumbling without subsequent striking against object, initial encounter; Y93.K9 Activity, other involving animal care

== ENCOUNTER 2024-04-24 13:01 | Emergency (ER) | payer OTHER ==
[2024-04-24] VITALS (18 sets, daily range): BP systolic 128–146; BP diastolic 79–101
[~2024-04-24] VITALS: Ht 160 cm; Wt 104.3 kg
[~2024-04-24 13:01] MED LIST changes: +METFORMIN500 M2 PO; +METHOCARBAMOL500 MG PO; +OZEMPIC2 MG
[2024-04-24] MEDS ORDERED: ASPIRIN 81 MG/TAB PO ONE (13:10)
[2024-04-24] MEDS ORDERED: MORPHINE SULFATE 4 MG/ML VIAL IV ONE ×2 (13:20→16:05)
[2024-04-24] MEDS ORDERED: ONDANSETRON HCl 4 MG/2 ML SDV IV ONE (13:20)
[2024-04-24] MEDS ORDERED: TOPIRAMATE25 MG PO (13:24)
[2024-04-24] MEDS ORDERED: BUPROPN HCL300 MG PO (13:25)
[2024-04-24 13:48] LABS: BASO% 0.4 % (0-3); EOS% 2.9 % (0-8); HEMATOCRIT 42.2 % (37.0-47.0); HEMOGLOBIN 14.3 g/dl (12.0-16.0); IMMATURE GRANULOCYTES 0.2 % (0.0-5.0); LYMPH% 17.8 % (15-41); MEAN CELL VOLUME 91.3 fL CALC (80.0-100.0); MEAN CORPUSCULAR HGB CONC 33.9 g/dL CAL (32.0-36.0); MONO% 4.9 % (2-13); NEUT# 8.78 thou/uL (2.00-7.15); NEUT% 73.8 % (42-76); RED BLOOD COUNT 4.62 mill/uL (4.20-5.60); RED CELL DISTRI WIDTH 12.2 % (11.5-15.5)
[2024-04-24 13:59] LABS: ALBUMIN 4.5 g/dL (3.2-5.0); ALKALINE PHOSPHATASE 83 u/l (38-126); ANION GAP 11 (6-22 (CALC)); BILIRUBIN, TOTAL 0.6 mg/dL (0.02-1.3); BUN 14 mg/dL (7-17); BUN/CREATININE RATIO 23 (12-20 (CALC)); CARBON DIOXIDE 27 mmol/l (22-30); CHLORIDE 104 mmol/l (95-108); CREATININE 0.6 mg/dL (0.5-1.0); ESTIMATED GFR 121 ML/MIN (>=90 (CALC)); LIPASE 104 u/l (23-300); POTASSIUM 3.9 mmol/l (3.5-5.1); SGOT/AST 35 u/l (14-36); SODIUM 138 mmol/l (137-146); TOTAL PROTEIN 7.6 g/dL (6.3-8.2)
[2024-04-24] MEDS ORDERED: DEXAMETHASONE SOD. PHOSPHATE 10 MG/ML VIAL IV ONE (14:55)
[2024-04-24] MEDS ORDERED: KETOROLAC TROMETHAMINE 30 MG/ML SDV IV ONE (14:55)
[2024-04-24] MEDS ORDERED: MEDDOSEPAK PO (16:47)
== END 2024-04-24 17:00 | disposition home or self-care (01) ==
LOC: ED 13:01
PROVIDERS: Nurse Practitioner
DX: M94.0 Chondrocostal junction syndrome [Tietze] (principal); E11.9 Type 2 diabetes mellitus without complications; I50.9 Heart failure, unspecified; J45.909 Unspecified asthma, uncomplicated; Z79.84 Long term (current) use of oral hypoglycemic drugs; Z20.822 Contact with and (suspected) exposure to COVID-19